=== PATIENT | male | born 1960 | race Caucasian/White ===

== ENCOUNTER 2017-02-13 19:04 | Inpatient (IN) | payer OTHER ==
[~2017-02-13] VITALS: Ht 185.4 cm; Wt 81.1 kg
[~2017-02-13 19:04] MED LIST: BACT800T5 PO; CEPH-460 PO; IBUP800T23 PO; LACTATED RINGER'S 1000 ML INJ 2,000 ML IV ONE; ONDANSETRON HCL 4 MG/2 ML VIAL IV PUSH ONE; PHENYLEPH/NS 1000 MCG/10 ML SYR IV ONE; PROPOFOL 200 MG/20 ML AMP IV ONE
[2017-02-13 19:15] VITALS: O2SAT 100
[2017-02-13] MEDS ORDERED: MIDAZOLAM HCL 5 MG/ML VIAL (1 ML) ONE ×2 (19:17→19:23)
[2017-02-13] MEDS ORDERED: ONDANSETRON HCL 4 MG/2 ML VIAL ONE ×2 (19:18→19:25)
[2017-02-13] MEDS ORDERED: MORPHINE SULFATE 8 MG/ML INJ ONE (19:18)
[2017-02-13] MEDS ORDERED: LIDOCAINE 1%/EPINEPHrine 1:100,000 SOLN 20 ML VIAL ONE (19:18)
[2017-02-13] MEDS ORDERED: fentaNYL CITRATE 250 MCG/5 ML AMP ONE (19:18)
[2017-02-13] MEDS ORDERED: LIDOCAINE HCL 1% PF 30 ML VIAL ONE (19:25)
[2017-02-13 19:34] LABS: AUTOMATED NEUTROPHIL # 2.4 TH/MM3 (1.8-7.7); BASOPHIL % 0.4 % (0.0-2.0); EOSINOPHIL # 0.1 TH/MM3 (0-0.4); EOSINOPHIL % 1.6 % (0.0-4.0); HEMATOCRIT 43.4 % (39.0-51.0); HEMO FLAGS DIFF FINAL; LYMPH % 52.3 % (9.0-44.0); LYMPHOCYTE # 3.8 TH/MM3 (1.0-4.8); MEAN CELL VOLUME 96.8 FL (80.0-100.0); MEAN CORPUSCULAR HEMOGLOBIN 32.7 PG (27.0-34.0); MEAN CORPUSCULAR HGB CONC 33.8 % (32.0-36.0); MONO % 12.9 % (0.0-8.0); NEUT % 32.8 % (16.0-70.0); PLATELET COUNT 228 TH/MM3 (150-450); RED BLOOD COUNT 4.48 MIL/MM3 (4.50-5.90); RED CELL DISTRIBUTION WIDTH 14.2 % (11.6-17.2); WHITE BLOOD COUNT 7.3 TH/MM3 (4.0-11.0)
[2017-02-13 19:41] LABS: INTERNATIONAL NORMALIZED RATIO 0.9 RATIO; PROTHROMBIN TIME - PATIENT 10.2 SEC (9.8-11.6)
[2017-02-13 19:45] LABS: I-STAT POTASSIUM 3.2 MMOL/L (3.5-4.9)
[2017-02-13 19:49] LABS: BLOOD GAS BASE EXCESS -2.4 mmol/L (-2-2); BLOOD GAS CARBOXYHEMOGLOBIN 10.6 % (0-4); BLOOD GAS HCO3 21 mmol/L (22-26); BLOOD GAS METHEMOGLOBIN 0.6 % (0-2); BLOOD GAS O2 HGB SATURATION 89 % (90-100); BLOOD GAS OXYGEN CONTENT 16.2 Vol % (12.0-20.0); BLOOD GAS PCO2 31 mmHg (38-42); BLOOD GAS PO2 210 mmHG (61-120); BLOOD GAS TOTAL HGB 12.7 G/DL (12.0-16.0); CRITICAL VALUE YES; TEMP CORR TO 98.6
[2017-02-13 19:50] LABS: DRAW SITE RT RADIAL; FIO2 100 %; LITER FLOW 15 L/M; NUMBER OF ARTERIAL PUNCTURES 1; STAT YES; ULNAR PULSE PRESENT
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
[2017-02-13] MEDS ORDERED: BACITRACIN TOP OINT 15 GM TUBE ONE (20:30)
[2017-02-13] MEDS ORDERED: ONDANSETRON HCL 4 MG/2 ML VIAL IV PRN (20:45)
[2017-02-13] MEDS ORDERED: LORazepam 2 MG TAB PO PRN (20:45)
[2017-02-13] MEDS ORDERED: ACETAMINOPHEN 325 MG TAB PO PRN (20:45)
[2017-02-13] MEDS ORDERED: LORazepam 2 MG/ML VIAL IV PUSH PRN ×4 (20:45)
[2017-02-13] MEDS ORDERED: LORazepam 1 MG TAB PO PRN (20:45)
[2017-02-13] MEDS ORDERED: ENALAPRILAT 1.25 MG/ML VIAL IV PRN (20:45)
[2017-02-13] MEDS ORDERED: MISCELLANEOUS NURSING INFORMATION XX SCH (20:45)
[2017-02-13] MEDS ORDERED: CHLORHEXIDINE GLUCONATE 2 % 1 PACK (2 CLOTHS) TOP PRN (20:45)
[2017-02-13] MEDS ORDERED: FLUMAZENIL 0.5 MG/5 ML VIAL IV PUSH PRN (20:45)
[2017-02-13] MEDS ORDERED: MAGNESIUM HYDROXIDE SUSP 30 ML CUP PO PRN (20:45)
[2017-02-13 20:55] VITALS: O2SAT 100
[2017-02-13] MEDS ORDERED: DO NOT ADM ANY ANTICOAGULANT DRUGS PRN (20:55)
[2017-02-13] MEDS: DOCUSATE SODIUM 100 MG CAP PO SCH (21:00)
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
[2017-02-13 21:31] LABS: BLOOD GAS BASE EXCESS -4.1 mmol/L (-2-2); BLOOD GAS CARBOXYHEMOGLOBIN 7.1 % (0-4); BLOOD GAS HCO3 21 mmol/L (22-26); BLOOD GAS METHEMOGLOBIN 1.1 % (0-2); BLOOD GAS O2 HGB SATURATION 91 % (90-100); BLOOD GAS OXYGEN CONTENT 14.7 Vol % (12.0-20.0); BLOOD GAS PCO2 41 mmHg (38-42); BLOOD GAS PO2 139 mmHg (61-120); BLOOD GAS TOTAL HGB 11.3 G/DL (12.0-16.0); TEMP CORR TO 98.6
[2017-02-13 21:32] LABS: CRITICAL VALUE YES; OXYGEN DEVICE VENTILATOR
[2017-02-13 21:33] LABS: DRAW SITE LT RADIAL; FIO2 40 %; NUMBER OF ARTERIAL PUNCTURES 1; STAT NO; ULNAR PULSE PRESENT; VENT SETTINGS 12/600/10PS/5PEEP
[2017-02-13] MEDS: SODIUM CHLOR 0.9% 1000 ML INJ 1,000 ML IV SCH (21:35)
[2017-02-13 21:41] LABS: HEMATOCRIT 33.5 % (39.0-51.0); MEAN CELL VOLUME 95.6 FL (80.0-100.0); MEAN CORPUSCULAR HEMOGLOBIN 33.1 PG (27.0-34.0); MEAN CORPUSCULAR HGB CONC 34.6 % (32.0-36.0); PLATELET COUNT 195 TH/MM3 (150-450); REVIEW FLAG FINAL; WHITE BLOOD COUNT 8.9 TH/MM3 (4.0-11.0)
[2017-02-13 21:42] VITALS: O2SAT 95
[2017-02-13] MEDS ORDERED: PANTOPRAZOLE SODIUM 40 MG VIAL IVP SCH (22:00)
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
[2017-02-13 22:33] LABS: BICARBONATE 23.9 MEQ/L (21.0-32.0); POTASSIUM 3.5 MEQ/L (3.5-5.1)
[2017-02-13 23:08] LABS: CALCIUM-PROTEIN CORRECTED 7.4 MG/DL (8.5-10.1)
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
[2017-02-13 23:30] VITALS: PULSE 86
[2017-02-14] VITALS (13 sets, daily range): BP systolic 108–133; BP diastolic 68–87; PULSE 64–95; RESP 11–20; TEMP 98–99.2; O2SAT 94–100
[2017-02-14] MEDS: CHLORHEXIDINE GLUCONATE 2 % 1 PACK (2 CLOTHS) TOP SCH
[2017-02-14] MEDS: HYDROmorphone HCL PF 1 MG/ML VIAL IVP PRN ×7 (00:15→21:45)
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
[2017-02-14] MEDS ORDERED: CALCIUM GLUCONATE INJ 1 GM in DEXTROSE 5% IN WATER 100ML INJ 100 ML IV ONE ×2 (03:15)
[2017-02-14] MEDS ORDERED: LORazepam 2 MG/ML VIAL IV PUSH PRN (03:15)
[2017-02-14] MEDS ORDERED: RESP: ALBUTEROL 2.5 MG/3 ML NEB (PRN) NEB (03:15)
[2017-02-14] MEDS: SODIUM CHLOR 0.9% 1000 ML INJ 1,000 ML IV SCH (03:41)
[2017-02-14 05:04] LABS: AUTOMATED NEUTROPHIL # 7.5 TH/MM3 (1.8-7.7); BASOPHIL % 0.1 % (0.0-2.0); EOSINOPHIL % 0.1 % (0.0-4.0); HEMO FLAGS DIFF FINAL; LYMPH % 4.9 % (9.0-44.0); LYMPHOCYTE # 0.4 TH/MM3 (1.0-4.8); MEAN CELL VOLUME 96.7 FL (80.0-100.0); MEAN CORPUSCULAR HEMOGLOBIN 33.2 PG (27.0-34.0); MEAN CORPUSCULAR HGB CONC 34.3 % (32.0-36.0); MONO % 2.1 % (0.0-8.0); NEUT % 92.8 % (16.0-70.0); PLATELET COUNT 194 TH/MM3 (150-450); RED BLOOD COUNT 3.72 MIL/MM3 (4.50-5.90); RED CELL DISTRIBUTION WIDTH 13.9 % (11.6-17.2)
[2017-02-14 05:34] LABS: BICARBONATE 25.4 MEQ/L (21.0-32.0); POTASSIUM 4.1 MEQ/L (3.5-5.1)
[2017-02-14 05:53] LABS: CALCIUM-PROTEIN CORRECTED 7.4 MG/DL (8.5-10.1)
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
[2017-02-14] MEDS: THIAMINE HCL 100 MG TAB PO SCH (08:32)
[2017-02-14] MEDS: MULTIVITAMIN TAB PO SCH (08:32)
[2017-02-14] MEDS: ACETAMINOPHEN/HYDROcodone 325 MG/5 MG TAB PO PRN ×3 (08:33→19:38)
[2017-02-14] MEDS: DOCUSATE SODIUM 100 MG CAP PO SCH ×2 (08:34→19:36)
[2017-02-14] MEDS ORDERED: PANTOPRAZOLE SOD 40 MG DELAYED RELEASE TAB PO SCH (09:00)
[2017-02-14] MEDS: RESP: ALBUTEROL 2.5 MG/IPRATROPIUM 0.5 MG NEB (SCH) NEB ×3 (09:18→20:35)
[2017-02-14] MEDS: MUPIROCIN 2% OINT 1 APPLIC/GM SYR NASAL SCH ×2 (09:58→19:36)
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
[2017-02-14] MEDS: ENOXAPARIN SODIUM 30 MG/0.3 ML SYRINGE SQ SCH (19:36)
[2017-02-15] VITALS (8 sets, daily range): BP systolic 97–134; BP diastolic 49–77; PULSE 71–88; RESP 14–21; TEMP 96.8–98.6; O2SAT 95–99
[2017-02-15] MEDS: HYDROmorphone HCL PF 1 MG/ML VIAL IVP PRN ×3 (01:40→11:33)
[2017-02-15] MEDS: CHLORHEXIDINE GLUCONATE 2 % 1 PACK (2 CLOTHS) TOP SCH (04:00)
[2017-02-15 05:44] LABS: ALT (GPT) 35 U/L (12-78); ANION GAP 6 MEQ/L (5-15); AST (GOT) 26 U/L (15-37); BICARBONATE 28.9 MEQ/L (21.0-32.0); BLOOD UREA NITROGEN 9 MG/DL (7-18); CHLORIDE 105 MEQ/L (98-107); GLOMERULAR FILTRATION RATE 98 ML/MIN (>89); POTASSIUM 3.9 MEQ/L (3.5-5.1); SODIUM (NA) 140 MEQ/L (136-145)
[2017-02-15 05:45] LABS: AUTOMATED NEUTROPHIL # 5.4 TH/MM3 (1.8-7.7); BASOPHIL % 0.2 % (0.0-2.0); EOSINOPHIL % 0.4 % (0.0-4.0); HEMATOCRIT 33.2 % (39.0-51.0); HEMO FLAGS DIFF FINAL; LYMPH % 23.4 % (9.0-44.0); LYMPHOCYTE # 1.9 TH/MM3 (1.0-4.8); MEAN CELL VOLUME 96.7 FL (80.0-100.0); MEAN CORPUSCULAR HEMOGLOBIN 33.4 PG (27.0-34.0); MEAN CORPUSCULAR HGB CONC 34.6 % (32.0-36.0); MONO % 9.3 % (0.0-8.0); NEUT % 66.7 % (16.0-70.0); PLATELET COUNT 176 TH/MM3 (150-450); RED BLOOD COUNT 3.43 MIL/MM3 (4.50-5.90); RED CELL DISTRIBUTION WIDTH 13.9 % (11.6-17.2); WHITE BLOOD COUNT 8.1 TH/MM3 (4.0-11.0)
[2017-02-15 05:47] LABS: ALKALINE PHOSPHATASE 71 U/L (45-117); TOTAL BILIRUBIN ADULT 0.3 MG/DL (0.2-1.0)
[2017-02-15] MEDS: ACETAMINOPHEN/HYDROcodone 325 MG/5 MG TAB PO PRN ×2 (06:21→19:36)
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
[2017-02-15] MEDS: RESP: ALBUTEROL 2.5 MG/IPRATROPIUM 0.5 MG NEB (SCH) NEB ×3 (08:10→20:47)
[2017-02-15] MEDS: ENOXAPARIN SODIUM 30 MG/0.3 ML SYRINGE SQ SCH ×2 (08:49→19:35)
[2017-02-15] MEDS: MUPIROCIN 2% OINT 1 APPLIC/GM SYR NASAL SCH ×2 (08:49→19:38)
[2017-02-15] MEDS: DOCUSATE SODIUM 100 MG CAP PO SCH ×2 (08:49→19:36)
[2017-02-15] MEDS: THIAMINE HCL 100 MG TAB PO SCH (08:49)
[2017-02-15] MEDS: MULTIVITAMIN TAB PO SCH (08:49)
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
[2017-02-15] MEDS ORDERED: DOCU1CAP39 PO (22:19)
[2017-02-15] MEDS ORDERED: MAGN400S PO (22:19)
[2017-02-16] VITALS: BP 122/69; PULSE 70; RESP 19; TEMP 98.2; O2SAT 97
[2017-02-16] MEDS: ACETAMINOPHEN/HYDROcodone 325 MG/5 MG TAB PO PRN ×3 (05:04→20:55)
[2017-02-16] MEDS: DOCUSATE SODIUM 100 MG CAP PO SCH ×2 (07:31→20:56)
[2017-02-16] MEDS: THIAMINE HCL 100 MG TAB PO SCH (07:31)
[2017-02-16] MEDS: MULTIVITAMIN TAB PO SCH (07:31)
[2017-02-16] MEDS: ENOXAPARIN SODIUM 30 MG/0.3 ML SYRINGE SQ SCH ×2 (07:33→20:56)
[2017-02-16] MEDS: MUPIROCIN 2% OINT 1 APPLIC/GM SYR NASAL SCH ×2 (07:36→20:55)
[2017-02-16 08:00] VITALS: BP 130/85; PULSE 77; RESP 18; TEMP 97.9; O2SAT 100
--- NOTE | 2017-02-16 08:28 | RADRPT ---
EXAM DATE/TIME: 02/16/2017 06:10 [facility] COMPARISON: CHEST SINGLE AP, February 15, 2017, 5:41. INDICATIONS : Post chest tube removal. MEDICAL HISTORY : Pneumothorax, left. SURGICAL HISTORY : Chest tube, left. ENCOUNTER: Subsequent ACUITY: 3 days PAIN SCORE: 2/10 LOCATION: Left chest FINDINGS: There has been interval removal of left thoracostomy tube. There is a small apical pneumothorax prese nt with about 1.5 cm separation of apical pleural layers. Right lung is stable clear and well expande d. The cardiac contours are stable and satisfactory. Obtaining is emphysema persists along the left c hest. CONCLUSION: Left chest tube removal with small apical pneumothorax Jonathan Cain MD on February 16, 2017 at 6:43 Board Certified Radiologist. This report was verified electronically.
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
[2017-02-16 12:00] VITALS: BP 125/75; PULSE 69; RESP 17; TEMP 96.8; O2SAT 98
[2017-02-16] MEDS: HYDROmorphone HCL PF 1 MG/ML VIAL IVP PRN ×2 (12:03→21:44)
[2017-02-16 16:00] VITALS: BP 137/89; PULSE 76; RESP 19; TEMP 98.2; O2SAT 100
[2017-02-16 20:00] VITALS: BP 148/80; PULSE 97; RESP 20; TEMP 98.7; O2SAT 98
[2017-02-16] MEDS: SODIUM CHLORIDE 0.9% FLUSH 10 ML FLUSH IV FLUSH PRN (21:44)
[2017-02-17] VITALS: BP 121/79; PULSE 95; RESP 20; TEMP 98.4; O2SAT 98
[2017-02-17] MEDS: ACETAMINOPHEN/HYDROcodone 325 MG/5 MG TAB PO PRN ×3 (04:51→14:33)
[2017-02-17] MEDS: HYDROmorphone HCL PF 1 MG/ML VIAL IVP PRN (06:07)
[2017-02-17] MEDS: SODIUM CHLORIDE 0.9% FLUSH 10 ML FLUSH IV FLUSH PRN (06:07)
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
[2017-02-17 08:00] VITALS: BP 136/81; PULSE 88; RESP 18; TEMP 97.8; O2SAT 97
[2017-02-17] MEDS: MUPIROCIN 2% OINT 1 APPLIC/GM SYR NASAL SCH (09:00)
[2017-02-17] MEDS: DOCUSATE SODIUM 100 MG CAP PO SCH (09:58)
[2017-02-17] MEDS: MULTIVITAMIN TAB PO SCH (09:58)
[2017-02-17] MEDS: THIAMINE HCL 100 MG TAB PO SCH (09:59)
[2017-02-17] MEDS: ENOXAPARIN SODIUM 30 MG/0.3 ML SYRINGE SQ SCH (09:59)
[2017-02-17 12:00] VITALS: BP 115/77; PULSE 91; RESP 18; TEMP 97.3; O2SAT 99
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
[2017-02-17] MEDS ORDERED: HYDR-3516 PO (13:37)
== END 2017-02-17 14:38 | disposition home or self-care (01) | DRG 580 ==
LOC: NEPI 19:04 → NEDA 20:02 → EDBD 20:02 → MERGE 20:02 → N03B 22:15 → N07B 02-14 22:25
PROVIDERS: ADMIT Surgery; ATTEND Surgery
PROC: 0WJG4ZZ Inspection of Peritoneal Cavity, Percutaneous Endoscopic Approach (ICD-10-PCS; 2017-02-13)
PROC: 0KQJ0ZZ Repair Left Thorax Muscle, Open Approach (ICD-10-PCS; principal; 2017-02-13 19:39)
PROC: 0W9B30Z Drainage of Left Pleural Cavity with Drainage Device, Percutaneous Approach (ICD-10-PCS; 2017-02-13 19:39)
PROC: 0KQ10ZZ Repair Facial Muscle, Open Approach (ICD-10-PCS; 2017-02-13 19:39)
DX: S21.112A Laceration without foreign body of left front wall of thorax without penetration into thoracic cavity, initial encounter (principal); D62 Acute posthemorrhagic anemia; S27.2XXA Traumatic hemopneumothorax, initial encounter; E83.51 Hypocalcemia; S01.81XA Laceration without foreign body of other part of head, initial encounter; F10.120 Alcohol abuse with intoxication, uncomplicated; Y93.9 Activity, unspecified; Y92.410 Unspecified street and highway as the place of occurrence of the external cause; Y99.8 Other external cause status; Y90.8 Blood alcohol level of 240 mg/100 ml or more; T79.7XXA Traumatic subcutaneous emphysema, initial encounter; G89.29 Other chronic pain; F17.210 Nicotine dependence, cigarettes, uncomplicated; F10.129 Alcohol abuse with intoxication, unspecified; M54.5 Low back pain; S01.511A Laceration without foreign body of lip, initial encounter; X99.1XXA Assault by knife, initial encounter
CPT/HCPCS: 32551; 36600; 71010; 72170; 80048; 80053; 80307; 82435; 82565; 82805; 82947; 84132; 84155; 84295; 84520; 85025; 85027; 85610; 85730; 86850; 86900; 86901; 86920; 87641; 90471; 94002; 94150; 94640; 94664; 96374; 96375; 99291; C9113; G0390; J0610; J1170; J1650; J2250; J2270; J2370; J2405; J3010; J7030; J7120

== ENCOUNTER 2017-02-23 07:26 | Emergency (ER) | payer OTHER ==
[~2017-02-23] VITALS: Ht 182.9 cm; Wt 89.5 kg
[~2017-02-23 07:26] MED LIST changes: -BACT800T5 PO; -CEPH-460 PO; +DOCU1CAP39 PO; +HYDR-3516 PO; -IBUP800T23 PO; -LACTATED RINGER'S 1000 ML INJ 2,000 ML IV ONE; +MAGN400S PO; -ONDANSETRON HCL 4 MG/2 ML VIAL IV PUSH ONE; -PHENYLEPH/NS 1000 MCG/10 ML SYR IV ONE; -PROPOFOL 200 MG/20 ML AMP IV ONE
[2017-02-23 07:27] VITALS: BP 135/84; PULSE 88; RESP 18; TEMP 98.6; O2SAT 100
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
== END 2017-02-23 08:05 | disposition home or self-care (01) ==
LOC: NEPK 07:26
DX: S01.81XD Laceration without foreign body of other part of head, subsequent encounter (principal); S31.115D Laceration without foreign body of abdominal wall, periumbilic region without penetration into peritoneal cavity, subsequent encounter; X99.1XXD Assault by knife, subsequent encounter; Z48.02 Encounter for removal of sutures
CPT/HCPCS: 99281

== ENCOUNTER 2017-02-28 06:52 | Emergency (ER) | payer OTHER ==
[2017-03-01] MEDS ORDERED: COLC1TAB15 PO (11:14)
[2017-03-01] MEDS ORDERED: DOXY100C PO (11:14)
[2017-03-01] MEDS ORDERED: MEDI220T PO (11:19)
== END 2017-02-28 07:00 | disposition left against medical advice (07) ==
LOC: NED 06:52
DX: R07.9 Chest pain, unspecified (principal)
CPT/HCPCS: 99281

== ENCOUNTER 2017-02-28 18:17 | Observation (INO) | payer OTHER ==
[~2017-02-28] VITALS: Ht 172.7 cm; Wt 90.0 kg
[2017-02-28 18:59] VITALS: BP 119/71; PULSE 93; RESP 18; TEMP 99.1; O2SAT 99
[2017-02-28] MEDS ORDERED: ASPIRIN 325 MG TAB PO ONE (20:30)
[2017-02-28] MEDS ORDERED: MORPHINE SULFATE 4 MG/ML INJ IV PUSH ONE (20:30)
[2017-02-28] MEDS ORDERED: SODIUM CHLORIDE 0.9% FLUSH 10 ML FLUSH IVF PRN (20:30)
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
[2017-02-28 21:28] LABS: AUTOMATED NEUTROPHIL # 7.5 TH/MM3 (1.8-7.7); BASOPHIL % 0.3 % (0.0-2.0); EOSINOPHIL # 0.2 TH/MM3 (0-0.4); EOSINOPHIL % 1.6 % (0.0-4.0); HEMATOCRIT 37.7 % (39.0-51.0); HEMO FLAGS DIFF FINAL; LYMPH % 15.1 % (9.0-44.0); LYMPHOCYTE # 1.5 TH/MM3 (1.0-4.8); MEAN CELL VOLUME 97.2 FL (80.0-100.0); MEAN CORPUSCULAR HEMOGLOBIN 32.5 PG (27.0-34.0); MEAN CORPUSCULAR HGB CONC 33.5 % (32.0-36.0); MONO % 8.6 % (0.0-8.0); NEUT % 74.4 % (16.0-70.0); PLATELET COUNT 341 TH/MM3 (150-450); RED BLOOD COUNT 3.88 MIL/MM3 (4.50-5.90); RED CELL DISTRIBUTION WIDTH 14.5 % (11.6-17.2); WHITE BLOOD COUNT 10.1 TH/MM3 (4.0-11.0)
[2017-02-28 21:38] LABS: APTT (PATIENT) 29.3 SEC (24.3-30.1); PROTHROMBIN TIME - PATIENT 10.7 SEC (9.8-11.6)
[2017-02-28 21:45] LABS: ANION GAP 11 MEQ/L (5-15); AST (GOT) 20 U/L (15-37); BICARBONATE 20.8 MEQ/L (21.0-32.0); BLOOD UREA NITROGEN 9 MG/DL (7-18); CHLORIDE 102 MEQ/L (98-107); GLOMERULAR FILTRATION RATE 103 ML/MIN (>89); MAGNESIUM 2.3 MG/DL (1.5-2.5); POTASSIUM 3.3 MEQ/L (3.5-5.1); SODIUM (NA) 134 MEQ/L (136-145)
[2017-02-28 21:46] LABS: ALT (GPT) 20 U/L (12-78)
[2017-02-28 21:49] LABS: ALKALINE PHOSPHATASE 78 U/L (45-117); CREATINE KINASE 114 U/L (39-308); TOTAL BILIRUBIN ADULT 0.4 MG/DL (0.2-1.0)
[2017-02-28] MEDS ORDERED: IOHEXOL 350 MG/ML 10 ML VIAL (for RAD DIAG) IV ONE (21:52)
--- NOTE | 2017-02-28 21:55 | EKG ---
Date Performed: 02/28/2017 Time Performed: 19:07:20 PTAGE: 57 years EKG: Sinus rhythm WITH SHORT TN INTERVAL BORDERLINE ECG NO PREVIOUS TRACING DOCTOR: Judah Johnson Interpretating Date/Time 02/28/2017 21:54:40
[2017-02-28 22:03] LABS: CKMB 1.3 NG/ML (0.5-3.6)
--- NOTE | 2017-02-28 22:07 | RADRPT ---
EXAM DATE/TIME: 02/28/2017 21:47 [place] COMPARISON: No previous studies available for comparison. INDICATIONS : Chest pain. IV CONTRAST: 73 cc Omnipaque 350 (iohexol) IV RADIATION DOSE: 13.65 CTDIvol (mGy) MEDICAL HISTORY : Chronic obstructive pulmonary disease. Diverticulitis. Substance abuse. SURGICAL HISTORY : None. ENCOUNTER: Initial ACUITY: 1 day PAIN SCALE: 8/10 LOCATION: Bilateral chest TECHNIQUE: Volumetric scanning of the chest was performed using a pulmonary embolism protocol MIP images were re constructed. Using automated exposure control and adjustment of the mA and/or kV according to patien t size, radiation dose was kept as low as reasonably achievable to obtain optimal diagnostic quality images. FINDINGS: No pulmonary embolus. Normal heart size. There is a small pericardial effusion. Scattered coronary ar harper calcification seen, both right and left-sided. Mild atelectasis and small pleural effusion seen at the left lung base. No lymphadenopathy. CONCLUSION: 1. No pulmonary embolus. 2. Small pericardial effusion. 3. Small effusion and mild atelectasis of the right lung base. 4. Coronary artery calcification. Jonathan Morales MD on February 28, 2017 at 22:03 Board Certified Radiologist. This report was verified electronically.
[2017-02-28 22:19] VITALS: BP 102/65; PULSE 92; RESP 16; O2SAT 98
[2017-02-28] MEDS ORDERED: POTASSIUM CHLORIDE 20 MEQ CONTROLLED RELEASE TAB PO ONE (22:45)
[2017-02-28] MEDS ORDERED: ALPRAZolam 0.25 MG TAB PO PRN (22:45)
[2017-02-28] MEDS ORDERED: TEMAZEPAM 15 MG CAP PO PRN (22:45)
[2017-02-28] MEDS ORDERED: ONDANSETRON HCL 4 MG/2 ML VIAL IV PRN (22:45)
[2017-02-28] MEDS ORDERED: MORPHINE SULFATE 4 MG/ML INJ IV PRN (22:45)
[2017-02-28] MEDS ORDERED: NITROGLYCERIN 0.4 MG SL 25 TABS/BTL SL PRN (22:45)
[2017-02-28 23:53] VITALS: PULSE 95
[2017-03-01] MEDS: ACETAMINOPHEN/HYDROcodone 325 MG/7.5 MG TAB PO PRN ×2 (00:27→07:21)
[2017-03-01 00:46] VITALS: BP 116/74; PULSE 66; RESP 18; TEMP 97.8; O2SAT 98
[2017-03-01 00:58] LABS: CREATINE KINASE 96 U/L (39-308)
[2017-03-01 03:02] VITALS: BP 114/69; PULSE 95; RESP 18; TEMP 98.4; O2SAT 95
[2017-03-01 03:39] LABS: CREATINE KINASE 103 U/L (39-308)
[2017-03-01 03:49] VITALS: PULSE 94
[2017-03-01 03:51] LABS: CKMB 0.8 NG/ML (0.5-3.6)
[2017-03-01 07:25] VITALS: PULSE 99
[2017-03-01 08:21] VITALS: BP 124/80; PULSE 91; RESP 18; TEMP 97.8; O2SAT 95
[2017-03-01] MEDS ORDERED: RESP: ALBUTEROL 2.5 MG/IPRATROPIUM 0.5 MG NEB (PRN) INH (08:45)
[2017-03-01] MEDS ORDERED: RESP: ALBUTEROL 2.5 MG/IPRATROPIUM 0.5 MG NEB (SCH) INH ONE (08:45)
[2017-03-01] MEDS ORDERED: ASPIRIN 325 MG TAB PO SCH (09:00)
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
[2017-03-01] MEDS ORDERED: COLCHICINE 0.6 MG TAB PO ONE (09:15)
[2017-03-01] MEDS ORDERED: DOXYCYCLINE HYCLATE 100 MG CAP PO ONE (09:30)
--- NOTE | 2017-03-01 11:13 | EKG ---
Date Performed: 03/01/2017 Time Performed: 02:58:53 PTAGE: 57 years EKG: Sinus rhythm WITH SHORT VT INTERVAL BORDERLINE ECG Since PREVIOUS TRACING , no significant change noted PREVIOUS TRACIN03/01/2017 02.58 DOCTOR: Angela Madison Interpretating Date/Time 03/03/2017 08:08:14
[2017-03-01] MEDS ORDERED: DOXY100C PO (11:14)
[2017-03-01] MEDS ORDERED: COLC1TAB15 PO (11:14)
--- NOTE | 2017-03-01 11:14 | EKG ---
Date Performed: 02/28/2017 Time Performed: 23:46:41 PTAGE: 57 years EKG: Sinus rhythm WITH SHORT PA INTERVAL BORDERLINE ECG Since PREVIOUS TRACING , no significant change noted PREVIOUS TRACIN02/28/2017 19.07 DOCTOR: Angela Madison Interpretating Date/Time 03/01/2017 11:13:06
--- NOTE | 2017-03-01 11:14 | HHI.DCPOC ---
Discharge Care Plan Diagnosis: (1) Pericarditis (2) Bronchitis (3) Tobacco abuse (4) Hypokalemia Goals to Promote Your Health * To prevent worsening of your condition and complications * To maintain your health at the optimal level Directions to Meet Your Goals Take your medications as prescribed Follow your dietary instruction Follow activity as directed Keep your appointments as scheduled Take your immunizations and boosters as scheduled If your symptoms worsen call your PCP, if no PCP go to Urgent Care Center or Emergency Room Smoking is Dangerous to Your Health. Avoid second hand smoke Call the 24-hour hour crisis hotline for domestic abuse at Tyler Fuentes Mar 01, 2017 11:14
[2017-03-01] MEDS ORDERED: MEDI220T PO (11:19)
== END 2017-03-01 12:08 | disposition home or self-care (01) ==
LOC: NEPE 18:17 → NEDA 22:33 → NEPHCDU 23:28
PROVIDERS: ADMIT Internal Medicine Cardiovascular Disease; ATTEND Internal Medicine Cardiovascular Disease
DX: R07.89 Other chest pain (principal); I31.3 Pericardial effusion (noninflammatory); J40 Bronchitis, not specified as acute or chronic; I31.9 Disease of pericardium, unspecified; F17.210 Nicotine dependence, cigarettes, uncomplicated; R68.84 Jaw pain; E87.6 Hypokalemia; J44.9 Chronic obstructive pulmonary disease, unspecified; F41.0 Panic disorder [episodic paroxysmal anxiety]; F41.9 Anxiety disorder, unspecified; K57.92 Diverticulitis of intestine, part unspecified, without perforation or abscess without bleeding; Z59.0 Homelessness
CPT/HCPCS: 71010; 71275; 80053; 82550; 82552; 83690; 83735; 84484; 85025; 85610; 85730; 93005; 94664; 96374; 96376; 99285; G0378; J2270; Q9967